=== PATIENT | male | born 1965 | race African-American/Black ===

== ENCOUNTER 2017-07-05 18:43 | Emergency (ER) | payer SELFPAY ==
[~2017-07-05] VITALS: Ht 182.9 cm; Wt 118.0 kg
[~2017-07-05 18:43] MED LIST: COZA50TA PO; LISI10TA PO; LORTA5 PO; ZOFR4TAB3 SL
[2017-07-05 18:44] VITALS: BP 147/98; PULSE 80; RESP 18; TEMP 98.8; O2SAT 96
== END 2017-07-05 22:20 | disposition left against medical advice (07) ==
LOC: NED 18:43
DX: R06.02 Shortness of breath (principal); Z53.21 Procedure and treatment not carried out due to patient leaving prior to being seen by health care provider
CPT/HCPCS: 99281

== ENCOUNTER 2017-12-19 08:58 | Emergency (ER) | payer OTHER ==
[~2017-12-19] VITALS: Ht 182.9 cm; Wt 120.0 kg
[2017-12-19 09:00] VITALS: BP 174/118; PULSE 86; RESP 18; TEMP 98.8; O2SAT 95
[2017-12-19] MEDS ORDERED: LISI10TA PO (09:34)
[2017-12-19] MEDS ORDERED: LOSA50TA PO (09:34)
--- NOTE | 2017-12-19 09:53 | RADRPT ---
EXAM DATE/TIME: 12/19/2017 09:33 [facility] COMPARISON: No previous studies available for comparison. INDICATIONS : Short of breath, cough MEDICAL HISTORY : high blood pressure SURGICAL HISTORY : None. ENCOUNTER: Initial ACUITY: 3 days PAIN SCORE: 8/10 LOCATION: Right chest FINDINGS: A single view of the chest demonstrates the lungs to be symmetrically aerated without evidence of mas s, infiltrate or effusion. The cardiomediastinal contours are unremarkable. Osseous structures are intact. CONCLUSION: 1. No acute cardiopulmonary disease. Rupert Rangel MD on December 19, 2017 at 9:49 Board Certified Radiologist. This report was verified electronically.
[2017-12-19 10:02] LABS: AUTOMATED NEUTROPHIL # 3.1 TH/MM3 (1.8-7.7); BASOPHIL % 0.8 % (0.0-2.0); EOSINOPHIL # 0.3 TH/MM3 (0-0.4); EOSINOPHIL % 5.5 % (0.0-4.0); HEMATOCRIT 43.2 % (39.0-51.0); HEMOGLOBIN 14.6 GM/DL (13.0-17.0); LYMPH % 25.8 % (9.0-44.0); LYMPHOCYTE # 1.6 TH/MM3 (1.0-4.8); MEAN CELL VOLUME 86.8 FL (80.0-100.0); MEAN CORPUSCULAR HEMOGLOBIN 29.4 PG (27.0-34.0); MEAN CORPUSCULAR HGB CONC 33.9 % (32.0-36.0); MEAN PLATELET VOLUME 8.6 FL (7.0-11.0); MONO % 18.5 % (0.0-8.0); MONOCYTE # 1.1 TH/MM3 (0-0.9); NEUT % 49.4 % (16.0-70.0); PLATELET COUNT 172 TH/MM3 (150-450); RED BLOOD COUNT 4.98 MIL/MM3 (4.50-5.90); RED CELL DISTRIBUTION WIDTH 14.1 % (11.6-17.2); WHITE BLOOD COUNT 6.2 TH/MM3 (4.0-11.0)
[2017-12-19 10:24] LABS: ALBUMIN 3.6 GM/DL (3.4-5.0); AST (GOT) 46 U/L (15-37); BICARBONATE 26.9 MEQ/L (21.0-32.0); BLOOD UREA NITROGEN 9 MG/DL (7-18); CALCIUM 8.9 MG/DL (8.5-10.1); CHLORIDE 101 MEQ/L (98-107); CREATININE 1.27 MG/DL (0.60-1.30); GLOMERULAR FILTRATION RATE 72 ML/MIN (>89); GLUCOSE,RANDOM 163 MG/DL (74-106); SODIUM (NA) 136 MEQ/L (136-145)
[2017-12-19 10:25] LABS: ALT (GPT) 64 U/L (12-78)
[2017-12-19 10:27] LABS: ALKALINE PHOSPHATASE 87 U/L (45-117); TOTAL BILIRUBIN ADULT 0.5 MG/DL (0.2-1.0); TOTAL PROTEIN 7.7 GM/DL (6.4-8.2)
--- NOTE | 2017-12-19 10:31 | PD ---
HPI Chief Complaint: Flank/Kidney Pain Time Seen by Provider: 09:21 Travel History International Travel<30 days: No Contact w/Intl Traveler<30days: No Traveled to known affect area: No History of Present Illness HPI This is a 52-year-old male who presents to the emergency department with right sided pain that's been going on for several days, intermittent, present when he coughs or when he has a bowel movement, mostly in the flank and side area, sharp and stabbing. He denies any shortness of breath, chest pain, fevers, chills, nausea or vomiting. He's never had pain like this before. He denies any leg swelling and denies any long recent trips. He has no history of blood clot. PFSH Past Medical History Hypertension: Yes Past Surgical History Eye Surgery: Yes Social History Alcohol Use: Yes (OCCASSIONAL) Tobacco Use: No Substance Use: No Allergies-Medications (Allergen,Severity, Reaction): Coded Allergies: No Known Allergies (Verified Allergy, Unknown, 12/19/17) Reported Meds & Prescriptions Reported Meds & Active Scripts Active Reported Losartan (Losartan Potassium) 50 Mg Tab 50 Mg PO DAILY Lisinopril-Hctz 10-12.5 Mg Tab 1 Tab PO DAILY Review of Systems Except as stated in HPI: all other systems reviewed are Neg Physical Exam Narrative GENERAL:Well appearing, no acute distress SKIN: Focused skin assessment warm and dry. HEAD: Atraumatic. Normocephalic. EYES: Pupils equal and round. No injection or drainage. ENT: Moist mucous membranes NECK: Trachea midline. CARDIOVASCULAR: Regular rate and rhythm. No murmur appreciated. RESPIRATORY: Clear to auscultation. Breath sounds equal bilaterally. GASTROINTESTINAL: Abdomen soft, non-tender, nondistended. MUSCULOSKELETAL: No obvious deformities. NEUROLOGICAL: Awake and alert. No obvious cranial nerve deficits. Moving all extremities. PSYCHIATRIC: Appropriate mood and affect; insight and judgment normal. Data Data Last Documented VS Vital Signs Date Time Temp Pulse Resp B/P (MAP) Pulse Ox O2 Delivery O2 Flow Rate FiO2 12/19/17 09:00 98.8 86 18 174/118 (136) 95 Room Air Orders Orders Complete Blood Count With Diff (12/19/17 09:29) Comprehensive Metabolic Panel (12/19/17 09:29) D-Dimer (12/19/17 09:29) Chest, Single Ap (12/19/17 ) Electrocardiogram (12/19/17 ) Urinalysis - C+S If Indicated (12/19/17 10:11) Ct Pulmonary Angiogram (12/19/17 ) Iohexol 350 Inj (Omnipaque 350 Inj) (12/19/17 10:59) Labs Laboratory Tests Test 12/19/17 09:44 12/19/17 10:25 White Blood Count 6.2 TH/MM3 Red Blood Count 4.98 MIL/MM3 Hemoglobin 14.6 GM/DL Hematocrit 43.2 % Mean Corpuscular Volume 86.8 FL Mean Corpuscular Hemoglobin 29.4 PG Mean Corpuscular Hemoglobin Concent 33.9 % Red Cell Distribution Width 14.1 % Platelet Count 172 TH/MM3 Mean Platelet Volume 8.6 FL Neutrophils (%) (Auto) 49.4 % Lymphocytes (%) (Auto) 25.8 % Monocytes (%) (Auto) 18.5 % Eosinophils (%) (Auto) 5.5 % Basophils (%) (Auto) 0.8 % Neutrophils # (Auto) 3.1 TH/MM3 Lymphocytes # (Auto) 1.6 TH/MM3 Monocytes # (Auto) 1.1 TH/MM3 Eosinophils # (Auto) 0.3 TH/MM3 Basophils # (Auto) 0.0 TH/MM3 CBC Comment DIFF FINAL Differential Comment D-Dimer Quantitative (PE/DVT) 0.59 MG/L FEU Blood Urea Nitrogen 9 MG/DL Creatinine 1.27 MG/DL Random Glucose 163 MG/DL Total Protein 7.7 GM/DL Albumin 3.6 GM/DL Calcium Level 8.9 MG/DL Alkaline Phosphatase 87 U/L Aspartate Amino Transf (AST/SGOT) 46 U/L Alanine Aminotransferase (ALT/SGPT) 64 U/L Total Bilirubin 0.5 MG/DL Sodium Level 136 MEQ/L Potassium Level 3.9 MEQ/L Chloride Level 101 MEQ/L Carbon Dioxide Level 26.9 MEQ/L Anion Gap 8 MEQ/L Estimat Glomerular Filtration Rate 72 ML/MIN Urine Color YELLOW Urine Turbidity CLEAR Urine pH 5.5 Urine Specific [place] 1.014 Urine Protein 30 mg/dL Urine Glucose (UA) NEG mg/dL Urine Ketones NEG mg/dL Urine Occult Blood MOD Urine Nitrite NEG Urine Bilirubin NEG Urine Urobilinogen LESS THAN 2.0 MG/DL Urine Leukocyte Esterase NEG Urine RBC 3 /hpf Urine WBC 1 /hpf Urine Hyaline Casts 1 /lpf Urine Mucus FEW /lpf Microscopic Urinalysis Comment CULT NOT INDICATED MDM Medical Decision Making Medical Screen Exam Complete: Yes Emergency Medical Condition: Yes Interpretation(s) afebrile, no tachycardia, hypertensive No leukocytosis 18% monocytes Electrolytes are reassuring D-dimer slightly elevated Urinalysis is negative for infection, there is moderate blood with no RBCs . CPK will be ordered. Last 24 hours Impressions Chest X-Ray 12/19/17 0000 Signed Impressions: Service Date/Time: Tuesday, December 19, 2017 09:33 - CONCLUSION: 1. No acute cardiopulmonary disease. Rupert Rangel MD CT Angiography 12/19/17 0000 Signed Impressions: Service Date/Time: Tuesday, December 19, 2017 10:55 - CONCLUSION: 1. No CT evidence of pulmonary embolism to the subsegmental level. 2. Mild nonspecific right hilar and mediastinal adenopathy. Generally, this is inflammatory/reactive. 3. Diffusely decreased hepatic attenuation without volume loss consistent with hepatic steatosis. Rupert Rangel MD Differential Diagnosis Costochondritis, pulmonary embolism, pneumonia, cholelithiasis, cholecystitis, shingles Narrative Course This is a 52-year-old male who presents to the emergency department with pleuritic chest pain on the right side that's been going on for several days. He has had a little bit of a cough. He was placed on a monitor and an IV was established. He is not hypoxic. Labs are all reassuring with the exception of a mildly elevated d-dimer. CT pulmonary angiogram was ordered given the patient 's symptoms. This demonstrates some adenopathy in the right lung. Given this and the patient's monocytosis I suspect he has a viral syndrome which may be leading to some pleuritic irritation. He'll be discharged on anti- inflammatories and cough suppressant. The patient otherwise appears well and is appropriate for outpatient management. Diagnosis Primary Impression: Pleuritic chest pain Additional Impression: Viral syndrome Patient Instructions: General Instructions Additional Instructions: If you develop severe chest pain, shortness of breath, sweating, lightheadedness , dizziness or difficulty breathing return to the emergency department immediately. Followup with your primary care physician in 2-3 days if your symptoms are not resolved. Med/Other Pt SpecificInfo: Prescription(s) given Scripts Promethazine-Codeine Liq (Promethazine-Codeine Liq) 6.25-10 Mg/5 Ml Syrp 5 ML PO Q6H Y for COUGH AND/OR COLD SYMPTOMS, #60 ML 0 Refills Prov: Simran Banda MD 12/19/17 Naproxen (Naproxen) 500 Mg Tab 500 MG PO BID Y for PAIN SCALE 4 TO 10, #20 TAB 0 Refills Prov: Simran Banda MD 12/19/17 Disposition: 01 DISCHARGE HOME Condition: Stable Simran Banda MD Dec 19, 2017 10:31
[2017-12-19 10:46] LABS: BILIRUBIN, URINE NEG (NEG); BLOOD, URINE MOD (NEG); GLUCOSE,URINE NEG (NEG); HYALINE CAST, URINE 1 /lpf (RARE); KETONE, URINE NEG (NEG); MUCUS URINE FEW /lpf (OCC); NITRITE,URINE NEG (NEG); PH, URINE 5.5 (5.0-8.5); URINE COLOR YELLOW (YELLW/STRAW); URINE LEUKOCYTE ESTERASE NEG (NEG)
[2017-12-19] MEDS ORDERED: IOHEXOL 350 MG/ML 10 ML VIAL (for RAD DIAG) IVCONTRAST ONE (10:59)
--- NOTE | 2017-12-19 11:16 | RADRPT ---
EXAM DATE/TIME: 12/19/2017 10:55 [facility] COMPARISON: No previous studies available for comparison. INDICATIONS : Right chest pain after coughing IV CONTRAST: 73 cc Omnipaque 350 (iohexol) IV RADIATION DOSE: 23.01 CTDIvol (mGy) MEDICAL HISTORY : None SURGICAL HISTORY : None. ENCOUNTER: Initial ACUITY: 2 days PAIN SCALE: 9/10 LOCATION: Right lower chest TECHNIQUE: Volumetric scanning of the chest was performed using a pulmonary embolism protocol MIP images were re constructed. Using automated exposure control and adjustment of the mA and/or kV according to patien t size, radiation dose was kept as low as reasonably achievable to obtain optimal diagnostic quality images. DICOM format image data is available electronically for review and comparison. Follow-up recommendations for detected pulmonary nodules are based at a minimum on nodule size and pa tient risk factors according to Fleischner Society Guidelines. FINDINGS: PULMONARY ARTERIES: No filling defects are seen in the pulmonary arteries through the segmental level. LUNGS: Trace groundglass oOpacities in the lower lobes bilaterally, likely dependent atelectasis. PLEURAE: There is no pleural thickening or pleural effusion. MEDIASTINUM: Heart is normal in appearance without significant pericardial effusion. There are nonspecific small m ediastinal and right hilar nodes. Right hilar node measured 1.6 cm in short axis diameter. The left A P window node measures up to 1.1 cm in short axis diameter. MUSCULOSKELETAL: Within normal limits for patient age. MISCELLANEOUS: Diffusely decreased hepatic attenuation without significant volume loss. Otherwise, unremarkable. CONCLUSION: 1. No CT evidence of pulmonary embolism to the subsegmental level. 2. Mild nonspecific right hilar and mediastinal adenopathy. Generally, this is inflammatory/reactive. 3. Diffusely decreased hepatic attenuation without volume loss consistent with hepatic steatosis. Rupert Rangel MD on December 19, 2017 at 11:06 Board Certified Radiologist. This report was verified electronically.
[2017-12-19] MEDS ORDERED: NAPR500T2 PO (11:26)
[2017-12-19] MEDS ORDERED: PROM6.256 PO (11:26)
--- NOTE | 2017-12-21 01:22 | EKG ---
Date Performed: 12/19/2017 Time Performed: 09:41:46 PTAGE: 52 years EKG: Sinus rhythm MINIMAL VOLTAGE CRITERIA FOR LVH, CONSIDER NORMAL VARIANT NONSPECIFIC T-WAVE ABNORMALITY BORDERLINE ECG NO PREVIOUS TRACING DOCTOR: Ike Marie Interpretating Date/Time 12/21/2017 01:19:39
== END 2017-12-19 11:40 | disposition home or self-care (01) ==
LOC: NEPD 08:58
DX: R07.81 Pleurodynia (principal); B34.9 Viral infection, unspecified; R94.31 Abnormal electrocardiogram [ECG] [EKG]
CPT/HCPCS: 71045; 71275; 80053; 81001; 82550; 82552; 85025; 85379; 93005; 99285; Q9967